=== PATIENT | male | born 1945 | race Caucasian/White ===

== ENCOUNTER → 2016-04-16 | Outpatient (CLI) | payer MEDICARE ==
--- NOTE | 2016-04-17 08:04 | MRI ---
EXAM DESCRIPTION: MR LUMBAR SPINE WITHOUT IV CONTRAST CLINICAL HISTORY: 70 y/o M, RADICULOPATHY COMPARISON: None TECHNIQUE: Multi planar, multi sequence imaging of the lumbar spine was acquired without IV contrast. FINDINGS: Vertebral body height and marrow signal are unremarkable. There is grade 1 anterolisthesis of L3 on L4. Posterior annular tear is noted at L3-4 and L4-5. The conus terminates at L1. It is unremarkable. L2-L3: Facet degeneration. No spinal canal or neural foraminal narrowing. L2-L3: Facet degeneration. No spinal canal or neural foraminal narrowing. L3-L4: Moderate facet degeneration and ligamentum flavum thickening. There is unroofing of the intervertebral disc. The midline diameter of the spinal canal is narrowed to a moderately stenotic 7 mm. There is mild bilateral neural foraminal narrowing, right greater than left. There is likely contact of the exiting right L3 nerve root. L4-5: Mild facet degeneration, ligamentum flavum thickening and a broad-based 3 mm protrusion. The midline diameter of the spinal canal is narrowed to 8 mm. There is narrowing of bilateral neural foramen with contact of the bilateral exiting L4 nerve roots. L5-S1: Mild facet degeneration. No significant posterior disk pathology. No spinal canal or neural foraminal narrowing. IMPRESSION: Today's exam demonstrates multilevel degenerative change most pronounced at L3-4. At this level there is moderate facet degeneration which results in grade 1 anterolisthesis of L3 on L4. Additionally, there is moderate spinal canal narrowing at this level. There is neural foraminal narrowing and contact of the exiting right L3 nerve root and bilateral exiting L4 nerve roots. These findings could result in radiculopathies, if the patient is symptomatic. Electronically signed by: Awais Whitney MD 04/17/2016 08:02
== END | disposition home or self-care (01) ==
LOC: MRI 12:41
PROVIDERS: ATTEND Family Medicine
DX: M54.10 Radiculopathy, site unspecified (principal)

== ENCOUNTER → 2016-05-07 | Outpatient (CLI) | payer MEDICARE | END | disposition home or self-care (01) | LOC: GMAL 10:39 | PROVIDERS: ATTEND Family Medicine | DX: Z12.5 Encounter for screening for malignant neoplasm of prostate (principal) ==

== ENCOUNTER → 2016-09-21 | Outpatient (CLI) | payer MEDICARE | END | disposition home or self-care (01) | LOC: GMAL 11:54 | PROVIDERS: ATTEND Family Medicine | DX: D51.3 Other dietary vitamin B12 deficiency anemia (principal); E55.9 Vitamin D deficiency, unspecified ==

== ENCOUNTER → 2016-11-25 | Outpatient (CLI) | payer MEDICARE | END | disposition home or self-care (01) | LOC: GMAL 10:35 | PROVIDERS: ATTEND Family Medicine | DX: D50.9 Iron deficiency anemia, unspecified (principal); E55.9 Vitamin D deficiency, unspecified; D51.3 Other dietary vitamin B12 deficiency anemia ==

== ENCOUNTER → 2017-02-24 | Outpatient (CLI) | payer MEDICARE | END | disposition home or self-care (01) | LOC: GMAL 11:46 | PROVIDERS: ATTEND Family Medicine | DX: D53.9 Nutritional anemia, unspecified (principal); R53.82 Chronic fatigue, unspecified ==

== ENCOUNTER → 2017-04-13 | Outpatient (CLI) | payer MEDICARE ==
--- NOTE | 2017-04-13 21:08 | US ---
EXAM DESCRIPTION: Bladder: ULTRASOUND. CLINICAL HISTORY: INCONTINENCE OF URINE COMPARISON: None Available. TECHNIQUE: Transcutaneous scanning: Two-dimensional and Doppler modes. FINDINGS: Urinary bladder was identified. Prevoid dimensions 13.3 x 8.9 x 6.7 cm: volume-417.82 mL. No large mass or accumulation of debris. Post void measurements 7.0 x 6.2 x 4.9 cm: Volume-111.99 mL. Micturition volume approximately 306 mL. Bilateral ureteral jets were not seen by Doppler within the urinary bladder. IMPRESSION: Scanning of the urinary bladder. Patient able to empty approximately 75% of prevoid volume. Electronically signed by: Isaac Jay MD 04/13/2017 9:07 PM [facility]
== END ==
LOC: US 08:30
PROVIDERS: ATTEND Family Medicine
DX: N39.498 Other specified urinary incontinence (principal)

== ENCOUNTER → 2017-06-30 | Outpatient (CLI) | payer MEDICARE | LOC: GMAL 10:17 | PROVIDERS: ATTEND Family Medicine | DX: R53.82 Chronic fatigue, unspecified (principal) ==

== ENCOUNTER → 2017-09-23 | Outpatient (CLI) | payer MEDICARE | LOC: GMAL 11:02 | PROVIDERS: ATTEND Family Medicine | DX: E03.8 Other specified hypothyroidism (principal) ==

== ENCOUNTER → 2018-01-31 | Outpatient (CLI) | payer MEDICARE | LOC: GMAL 13:41 | PROVIDERS: ATTEND Family Medicine | DX: D51.3 Other dietary vitamin B12 deficiency anemia (principal); Z12.5 Encounter for screening for malignant neoplasm of prostate | CPT/HCPCS: 82607; G0103 ==

== ENCOUNTER → 2018-07-14 | Outpatient (CLI) | payer MEDICARE | LOC: GMATM 19:58 | PROVIDERS: ATTEND Nurse Practitioner Family | DX: R10.811 Right upper quadrant abdominal tenderness (principal) ==

== ENCOUNTER → 2019-09-29 | Outpatient (CLI) | payer OTHER ==
--- NOTE | 2019-09-29 16:31 | US ---
EXAM DESCRIPTION: Bladder: Ultrasound. CLINICAL HISTORY: 74 years Male FUNCTIONAL URINARY INCONTINENCE COMPARISON: Ultrasound of the bladder March 2017. TECHNIQUE: Transcutaneous scanning: Two-dimensional and Doppler modes. FINDINGS: Urinary bladder was visualized. Prevoid volume 9.7 x 9.3 x 7.8 cm equals 366.6 mL. Ureteral jet in the bladder not seen by color Doppler Post void volume 7.6 mL. Micturition volume 359 mL. No large intrinsic mass in the urinary bladder. Abdominal aorta: not measured. IMPRESSION: Moderate distention of the urinary bladder with normal voiding and no significant residual postvoid volume. Electronically signed by: Isaac Jay MD 09/29/2019 4:29 PM CDT
== END ==
LOC: US 09:07
PROVIDERS: ATTEND Family Medicine
DX: R39.81 Functional urinary incontinence (principal); R39.89 Other symptoms and signs involving the genitourinary system

== ENCOUNTER → 2019-12-13 | Outpatient (CLI) | payer SELFPAY ==
--- NOTE | 2019-12-14 09:46 | CT ---
EXAM DESCRIPTION: Cervical Spine CLINICAL HISTORY: NECK PAIN COMPARISON: MRI October 22, 2011 TECHNIQUE: Axial noncontast CT of the cervical spine with coronal and sagittal reformats. This exam was performed according to our departmental dose-optimization program, which includes automated exposure control, adjustment of the mA and/or kV according to patient size and/or use of iterative reconstruction technique. FINDINGS: Anterior plate and screw fixation at C5 and C7 seen with C6 corpectomy and vertical strut graft. Solid fusion between C5 and C7 is seen. No hardware failure or loosening. Straightening of the normal cervical lordosis with trace anterolisthesis C4 on C5. Calcifications of the intracranial carotid arteries and carotid bulb are seen. Visualized skull base is unremarkable. Visualized lung apices are unremarkable. Surgical changes from sternotomy with nonunion of the upper sternotomy seen. C1-2 and craniocervical junction Moderate degenerative changes between the anterior arch of C1 and the odontoid. C2-3 Moderate disc space narrowing. Severe right and moderate left facet hypertrophic and degenerative changes. No spinal canal stenosis. At least moderate to severe bilateral foraminal encroachment. C3-4 Mild disc space narrowing. Anterior disc osteophytic ridging. Severe right and moderate left facet hypertrophic and degenerative changes with mild uncal spurring. Severe right and moderate left foraminal encroachment. Mild spinal canal stenosis. C4-5 Mild to moderate disc space narrowing. Severe left and moderate right facet hypertrophic and degenerative changes. Severe left and mild right foraminal encroachment. No spinal canal stenosis. C5-6 Postsurgical changes at this level. Right greater than left uncal spurring contributes to moderate right and mild left foraminal encroachment. C6-7 Moderate bilateral uncovertebral joint hypertrophy. Partial bilateral facet arthrodesis. Mild facet hypertrophic and degenerative changes. Moderate to severe bilateral foraminal encroachment. C7-T1 Moderate disc space narrowing. Mild anterior wedging of the superior plate of T1 is stable from previous. Moderate bilateral facet hypertrophic and degenerative changes. At least mild bilateral foraminal encroachment. T1-T4: Mild to moderate facet hypertrophic and degenerative changes are seen contributing to moderate to severe bony foraminal encroachment at these levels. Mildly to wedging of the superior plate of T3 stable from previous as well. IMPRESSION: Stable C6 corpectomy with vertical strut graft. Anterior hardware fixation at C5 and C7 is compatible with solid interbody fusion. Moderate to severe facet hypertrophic and degenerative changes throughout the cervical spine and upper thoracic spine are again seen with multilevel moderate to severe foraminal encroachment as described level by level above. Trace degenerative anterolisthesis of C4 on C5 is seen. Electronically signed by: Eric Teran MD 12/14/2019 9:45 AM CDT
== END ==
LOC: CT 14:15
PROVIDERS: ATTEND Chiropractor
DX: S13.4XXA Sprain of ligaments of cervical spine, initial encounter (principal); M54.12 Radiculopathy, cervical region; M43.12 Spondylolisthesis, cervical region; M47.892 Other spondylosis, cervical region; Z98.890 Other specified postprocedural states

== ENCOUNTER → 2020-01-16 | Outpatient (CLI) | payer OTHER | LOC: GMAL 14:33 | PROVIDERS: ATTEND Family Medicine | DX: D51.3 Other dietary vitamin B12 deficiency anemia (principal); R53.81 Other malaise; E55.9 Vitamin D deficiency, unspecified; E11.9 Type 2 diabetes mellitus without complications; Z79.899 Other long term (current) drug therapy; R78.2 Finding of cocaine in blood ==